=== PATIENT | male | born 1980 | race African-American/Black ===

== ENCOUNTER 2019-06-08 05:19 | Emergency (ER) | payer OTHER ==
[~2019-06-08] VITALS: Ht 175.3 cm; Wt 106.6 kg
--- NOTE | 2019-06-08 05:28 | PHYS DOC ---
Adult General Chief Complaint Chief Complaint: ".. I got an infection of this ring finger on my right hand.. I did stick it with a needle .. 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 Patient does appear to have early cellulitis of right ring finger. There is no formed asthma and abscess at this time. Recent tour of duty in the [facility]. Patient up-to-date with vaccinations. No history immunosuppression. Patient is right-hand dominant. Distal neurovascular intact. Capillary refill is equal to left hand. Patient follows at [facility]. Review of Systems Review of Systems Constitutional: Denies fever or chills [] Eyes: Denies change in visual acuity, redness, or eye pain [] HENT: Denies nasal congestion or sore throat [] Respiratory: Denies cough or shortness of breath [] Cardiovascular: No additional information not addressed in HPI [] GI: Denies abdominal pain, nausea, vomiting, bloody stools or diarrhea [] : Denies dysuria or hematuria [] Musculoskeletal: Denies back pain or joint pain [] Integument: Denies rash or skin lesions [. Hx. right ring finger cellulitis Neurologic: Denies headache, focal weakness or sensory changes [] Endocrine: Denies polyuria or polydipsia [] All other systems were reviewed and found to be within normal limits, except as documented in this note. Family History Family History Noncontributory Physical Exam Physical Exam Constitutional: Well developed, well nourished, no acute distress, non-toxic appearance. [] HENT: Normocephalic, atraumatic, bilateral external ears normal, oropharynx moist, no oral exudates, nose normal. [] Eyes: PERRLA, EOMI, conjunctiva normal, no discharge. [] Neck: Normal range of motion, no tenderness, supple, no stridor. [] Cardiovascular:Heart rate regular rhythm, no murmur [] Lungs & Thorax: Bilateral breath sounds clear to auscultation [] Abdomen: Bowel sounds normal, soft, no tenderness, no masses, no pulsatile masses. [] Skin: Warm, dry, no erythema, no rash. [] Findings are right ring finger early paronychia as per history of present illness Back: No tenderness, no CVA tenderness. [] Extremities: No tenderness, no cyanosis, no clubbing, ROM intact, no edema. [] Except finding in Rt index finger as per HPI. Neurologic: Alert and oriented X 3, normal motor function, normal sensory function, no focal deficits noted. [] Psychologic: Affect normal, judgement normal, mood normal. [] EKG EKG [] Radiology/Procedures Radiology/Procedures [] Course & Med Decision Making Course & Med Decision Making Pertinent Labs and Imaging studies reviewed. (See chart for details) Patient continue warm water soaks and saline or Epsom salts. 4 times a day. Patient to take Bactrim DS twice day. Patient monitored for formation of an abscess that needs drainage. Patient follow-up [place]. Patient return if any concerns. Tylenol and ibuprofen for pain. Impression: 1. Rt index finger Cellulitis vs early paronychia [] Dragon Disclaimer Dragon Disclaimer This electronic medical record was generated, in whole or in part, using a voice recognition dictation system. Departure Departure: Disposition: 01 HOME/RESIDENCE PRIOR TO ADM Condition: STABLE Referrals: GUADALUPE OROZCO DO (PCP) Scripts Sulfamethoxazole/Trimethoprim (BACTRIM DS TABLET) 1 Each Tablet 1 TAB PO BID for cellulitis for 10 Days, #20 TAB 0 Refills Prov: GARY NAJERA MD 06/08/19 [place] Disclaimer This chart was dictated in whole or in part using Voice Recognition software in a busy, high-work load, and often noisy Emergency Department environment. It may contain unintended and wholly unrecognized errors or omissions. GARY NAJERA MD Jun 08, 2019 05:28
[2019-06-08 05:37] VITALS: BP 143/96
[2019-06-08] MEDS ORDERED: SULF1TAB24 PO (05:37)
[2019-06-08] MEDS ORDERED: SMZ/TMP 800/160MG TABLET. PO ONE ×2 (05:45→05:46)
--- NOTE | 2019-06-08 06:37 | RAD ---
INDICATION: Finger swelling COMPARISON: None. IMPRESSION: Right hand: 3 views obtained. No definite acute fracture or dislocation. Electronically signed by: Brennen Benz MD (06/08/2019 6:35 AM) [id number]
== END 2019-06-08 05:50 | disposition home or self-care (01) ==
LOC: ER 05:19
DX: L03.011 Cellulitis of right finger (principal)
CPT/HCPCS: 73130; 99284

== ENCOUNTER → 2020-11-10 | Outpatient (CLI) | payer OTHER ==
[~2020-11-10] MED LIST: SULF1TAB24 PO
--- NOTE | 2020-11-10 09:38 | RAD ---
Examination: Ultrasound abdomen limited HISTORY: History of elevated liver enzymes COMPARISON: None available FINDINGS: The liver length measures 14.4 cm. There is a 1.3 cm cystic structure identified in the left lobe of the liver likely a cyst. The common bile duct measures 2.7 mm in transverse dimension. The gallbladde r is mildly distended. The right kidney measures 11.2 x 5.8 x 7.3 cm. Mild echogenic appearing right kidney. The pancreas is not well-visualized due to bowel gas. IMPRESSION: 1. 1.3 cm liver cyst measuring 1.3 cm. 2. Mild echogenic appearing right kidney likely medical renal disease. Electronically signed by: Elvis Cohen MD (11/10/2020 9:35 AM) [id number]
== END ==
LOC: US 07:52
PROVIDERS: ATTEND Family Medicine
DX: K82.8 Other specified diseases of gallbladder (principal); R74.01 Elevation of levels of liver transaminase levels; K76.89 Other specified diseases of liver
CPT/HCPCS: 76705